=== PATIENT | female | born 2000 | race African-American/Black ===

== ENCOUNTER 2024-12-09 00:05 | Emergency (ER) | payer OTHER ==
[2024-12-09 00:12] VITALS: BP 100/72; PULSE 90; RESP 16; TEMP 98.4; BMI 19.7
== END 2024-12-09 01:02 | disposition home or self-care (01) ==
LOC: JER 00:05
DX: R10.12 Left upper quadrant pain (principal); R10.13 Epigastric pain; R63.8 Other symptoms and signs concerning food and fluid intake; R50.9 Fever, unspecified
CPT/HCPCS: 99283-25